=== PATIENT | female | born 1935 | race Hispanic/Latino ===

== ENCOUNTER 2017-12-10 23:35 | Inpatient (IN) | payer OTHER, MEDICARE ==
[~2017-12-10] VITALS: Ht 154.9 cm; Wt 83.9 kg
[~2017-12-10 23:35] MED LIST: ALBU2.5V2 IH; ALBU8.5H8 IH; AMOX-429 PO; FLUT1DIS4 IH; INSU100V12 SQ; IPRA3AMP24 IH; LOSA100T2 PO; METF10004 PO; METO-408 PO; MONT10TA24 PO; OMEP40CA37 PO; RANO500T3 PO; SIMV40TA59 PO; TIOT18CA3 IH
[2017-12-10] MEDS ORDERED: SODIUM CHLORIDE 0.9% 1000ML 1,000 ML IV ONE (23:52)
[2017-12-10] MEDS ORDERED: FAMOTIDINE/PF 20 MG/2 ML VIAL IV ONE (23:52)
[2017-12-10] MEDS ORDERED: ONDANSETRON HCL MDV 20ML 2 MG/ML VIAL ONE (23:52)
[2017-12-11] VITALS (31 sets, daily range): BP systolic 121–219; BP diastolic 51–110
[2017-12-11 00:02] LABS: BASOPHILS % (AUTO) 0.9 % (0.0-5.0); EOSINOPHILS % (AUTO) 1.5 % (0.0-8.0); HEMATOCRIT 37.5 % (36-48); MEAN CORPUSCULAR HGB CONC 34.1 g/dL (32.0-36.0); MEAN CORPUSCULAR VOLUME 91.1 fL (79-99); MONOCYTES % (AUTO) 8.5 % (3.0-13.0); NEUTROPHILS % (AUTO) 67.1 % (40.0-77.0); PLATELET COUNT (AUTO) 210 K/uL (130-400); RED BLOOD CELL COUNT(AUTO) 4.11 MIL/uL (4.00-5.50); RED CELL DISTRIBUTION WIDTH 15.6 % (11.0-15.5); WHITE BLOOD COUNT (AUTO) 9.3 K/uL (4.8-10.8)
[2017-12-11 00:08] LABS: CREATININE 0.8 mg/dL (0.5-1.5); POTASSIUM 4.1 mmol/L (3.5-5.1)
[2017-12-11 00:13] LABS: ALBUMIN 3.8 g/dL (3.5-5.0); BILIRUBIN,TOTAL 0.4 mg/dL (0.2-1.0); TOTAL PROTEIN, SERUM 8.2 g/dL (6.0-8.3)
[2017-12-11] MEDS ORDERED: MORPHINE SULFATE 4 MG/1ML SYG ONE (00:22)
[2017-12-11 06:06] LABS: APPEARANCE,URINE Clear (CLEAR); BILIRUBIN,URINE Negative (NEGATIVE); COLOR,URINE Yellow (YELLOW); GLUCOSE, URINE (UA) Negative (NEGATIVE); KETONES,URINE Negative (NEGATIVE); LEUKOCYTE ESTERASE ,URINE Trace (NEGATIVE); NITRATE,URINE Negative (NEGATIVE); OCCULT BLOOD,URINE Negative (NEGATIVE); PROTEIN,URINE Negative (NEGATIVE)
[2017-12-11 06:18] LABS: BACTERIA,URINE None Seen /HPF (None Seen); MUCUS,URINE Rare LPF (None Seen); RBC,URINE None Seen /HPF (0-1); SQUAMOUS EPITHELIAL CELL,UR Rare /HPF (0-2); WBC,URINE None Seen /HPF (0-1)
[2017-12-11] MEDS: SODIUM CHLORIDE 0.9% 1000ML 1,000 ML IV SCH (06:50)
[2017-12-11] MEDS ORDERED: LIDOCAINE HCL-MPF 1% 2ML VIAL IVP PRN ×2 (07:00)
[2017-12-11] MEDS ORDERED: ONDANSETRON HCL MDV 20ML 2 MG/ML VIAL IVP PRN (07:00)
[2017-12-11] MEDS ORDERED: HYDRALAZINE HCL 20 MG/ML VIAL IV PRN (07:00)
[2017-12-11] MEDS ORDERED: POTASSIUM CHLORIDE 10% ELIXIR 20 MEQ/15 ML UDCUP PO PRN ×2 (07:00)
[2017-12-11] MEDS ORDERED: MORPHINE SULFATE 2 MG/ML 1ML SYG IV PRN (07:00)
[2017-12-11] MEDS ORDERED: POTASSIUM CHLORIDE 20 MEQ ERTAB PO PRN (07:00)
[2017-12-11] MEDS ORDERED: POTASSIUM CHLORIDE 20MEQ/100ML 100 ML IV PRN ×2 (07:00)
[2017-12-11] MEDS: FAMOTIDINE/PF 20 MG/2 ML VIAL IV SCH ×2 (09:00→21:00)
[2017-12-11] MEDS ORDERED: SODIUM CHLORIDE 0.9% 1000ML 1,000 ML IV ONE (09:40)
[2017-12-11] MEDS ORDERED: ENOXAPARIN SODIUM 40 MG/0.4 ML SYRINGE SQ ONE (15:50)
[2017-12-11] MEDS ORDERED: SIMV40TA59 PO (18:12)
[2017-12-11] MEDS ORDERED: MULT-1296 PO (18:12)
[2017-12-11] MEDS ORDERED: IBUP-2077 PO (18:12)
[2017-12-11] MEDS ORDERED: DULO30CA51 PO (18:12)
[2017-12-11] MEDS ORDERED: METF10004 PO (18:12)
[2017-12-11] MEDS ORDERED: METO1TAB41 PO (18:12)
[2017-12-11] MEDS ORDERED: PANT40TA25 PO (18:12)
[2017-12-11] MEDS ORDERED: RANO500T3 PO (18:12)
[2017-12-11] MEDS ORDERED: MONT10TA24 PO (18:12)
[2017-12-11] MEDS ORDERED: FURO20TA4 PO (18:12)
[2017-12-11] MEDS ORDERED: LOSA50TA37 PO (18:12)
[2017-12-11] MEDS ORDERED: DONE5TAB33 PO (18:13)
[2017-12-11] MEDS ORDERED: ADV250 IH (18:13)
[2017-12-11] MEDS ORDERED: ALBU8.5H8 IH (18:13)
[2017-12-11] MEDS ORDERED: SODIUM CHLORIDE 0.9% 10 ML VIAL ONE (18:14)
[2017-12-11] MEDS ORDERED: CEFOXITIN SODIUM 1 GM VIAL ONE (18:14)
[2017-12-11] MEDS ORDERED: FENTANYL CITRATE PF 50 MCG/1 ML 2ML VIAL ONE (18:25)
[2017-12-11] MEDS ORDERED: PROPOFOL 10 MG/ML 20ML VIAL IV ONE (18:25)
[2017-12-11] MEDS ORDERED: MIDAZOLAM HCL 1 MG/ML 2ML VIAL ONE (18:25)
[2017-12-11] MEDS ORDERED: ONDANSETRON HCL 4 MG/2 ML VIAL IVP PRN (20:15)
[2017-12-11] MEDS ORDERED: HYDRALAZINE HCL 20 MG/ML VIAL ONE (20:28)
[2017-12-11] MEDS ORDERED: MEPERIDINE-PF 50 MG/ML SYG ONE (20:39)
[2017-12-11] MEDS ORDERED: LABETALOL HCL 5 MG/ML 20ML VIAL IV ONE (20:49)
[2017-12-11] MEDS: ZOSYN 3.375GM+NS 50ML 50 ML IV SCH (21:13)
[2017-12-12] VITALS (10 sets, daily range): BP systolic 120–161; BP diastolic 53–97
[2017-12-12] MEDS: MORPHINE SULFATE 4 MG/1ML SYG IV PRN ×3 (01:23→17:19)
[2017-12-12] MEDS: LACTATED RINGERS 1000ML 1,000 ML IV SCH ×2 (01:24→14:33)
[2017-12-12] MEDS: SODIUM CHLORIDE 0.9% 1000ML 1,000 ML IV SCH ×2 (01:24→09:30)
[2017-12-12 04:24] LABS: BASOPHILS % (AUTO) 0.3 % (0.0-5.0); EOSINOPHILS % (AUTO) 0.1 % (0.0-8.0); HEMATOCRIT 34.3 % (36-48); LYMPHOCYTES % (AUTO) 7.8 % (21.0-51.0); MEAN CORPUSCULAR HEMOGLOBIN 33.1 pg (27.0-33.0); MEAN CORPUSCULAR HGB CONC 35.8 g/dL (32.0-36.0); MEAN CORPUSCULAR VOLUME 92.5 fL (79-99); MONOCYTES % (AUTO) 7.5 % (3.0-13.0); NEUTROPHILS % (AUTO) 84.3 % (40.0-77.0); PLATELET COUNT (AUTO) 188 K/uL (130-400); RED CELL DISTRIBUTION WIDTH 15.6 % (11.0-15.5); WHITE BLOOD COUNT (AUTO) 9.1 K/uL (4.8-10.8)
[2017-12-12 04:36] LABS: CREATININE 0.7 mg/dL (0.5-1.5); POTASSIUM 3.9 mmol/L (3.5-5.1)
[2017-12-12] MEDS: ZOSYN 3.375GM+NS 50ML 50 ML IV SCH ×3 (05:17→21:00)
[2017-12-12] MEDS ORDERED: SUB TO ALBUTEROL 2.5MG/3ML NEBULES PER P&T IH PRN (08:15)
[2017-12-12] MEDS: HCTZ PO SCH ×2 (09:00→21:00)
[2017-12-12] MEDS: METOPROLOL SUCCINATE PO SCH ×2 (09:00→21:00)
[2017-12-12] MEDS: MULTIVITAMINS/MINERALS/IRO TAB PO SCH (09:00)
[2017-12-12] MEDS: ALBUTEROL SULFATE 0.083% 2.5 MG/3 ML INH IH SCH ×2 (14:16→18:00)
[2017-12-12] MEDS: FUROSEMIDE 20 MG TABLET PO SCH (14:32)
[2017-12-12] MEDS: LOSARTAN 50 MG TABLET PO SCH (14:32)
[2017-12-12] MEDS: RANOLAZINE 500 MG TAB.SR.12H PO SCH ×2 (14:32→22:53)
[2017-12-12] MEDS: FAMOTIDINE/PF 20 MG/2 ML VIAL IV SCH (14:32)
[2017-12-12] MEDS: DULOXETINE HCL 30 MG CAP PO SCH (14:32)
[2017-12-12] MEDS: ENOXAPARIN SODIUM 40 MG/0.4 ML SYRINGE SQ SCH (17:23)
[2017-12-12] MEDS: BUDESONIDE 0.5 MG/2 ML INH IH SCH (18:10)
[2017-12-12] MEDS: IPRATROPIUM/ALBUTEROL SULFATE 3 ML SOLUTION IH PRN (18:10)
[2017-12-12] MEDS: INSULIN HUMULIN R 100 UNIT/ML 3ML SQ SCH (21:00)
[2017-12-12] MEDS: MONTELUKAST SODIUM 10 MG TAB PO SCH (22:53)
[2017-12-12] MEDS: ATORVASTATIN CALCIUM 20 MG TABLET PO SCH (22:53)
[2017-12-12] MEDS: DONEPEZIL HCL 5 MG TAB PO SCH (22:53)
[2017-12-13] MEDS: IPRATROPIUM/ALBUTEROL SULFATE 3 ML SOLUTION IH PRN ×4 (00:33→23:25)
[2017-12-13 03:00] VITALS: BP 133/66
[2017-12-13] MEDS ORDERED: MORPHINE SULFATE 2 MG/ML 1ML SYG IVP PRN (05:00)
[2017-12-13] MEDS: ALBUTEROL SULFATE 0.083% 2.5 MG/3 ML INH IH SCH ×3 (06:00→19:15)
[2017-12-13 06:14] LABS: BASOPHILS % (AUTO) 0.7 % (0.0-5.0); EOSINOPHILS % (AUTO) 1.5 % (0.0-8.0); LYMPHOCYTES % (AUTO) 13.7 % (21.0-51.0); MEAN CORPUSCULAR HEMOGLOBIN 31.8 pg (27.0-33.0); MEAN CORPUSCULAR HGB CONC 34.6 g/dL (32.0-36.0); MONOCYTES % (AUTO) 11.2 % (3.0-13.0); NEUTROPHILS % (AUTO) 72.9 % (40.0-77.0); PLATELET COUNT (AUTO) 168 K/uL (130-400); RED BLOOD CELL COUNT(AUTO) 3.37 MIL/uL (4.00-5.50); RED CELL DISTRIBUTION WIDTH 15.6 % (11.0-15.5); WHITE BLOOD COUNT (AUTO) 6.9 K/uL (4.8-10.8)
[2017-12-13] MEDS: ZOSYN 3.375GM+NS 50ML 50 ML IV SCH ×3 (06:19→23:10)
[2017-12-13 06:24] LABS: CREATININE 0.7 mg/dL (0.5-1.5); POTASSIUM 3.7 mmol/L (3.5-5.1)
[2017-12-13] MEDS: INSULIN HUMULIN R 100 UNIT/ML 3ML SQ SCH ×4 (06:32→21:00)
[2017-12-13] MEDS: MORPHINE SULFATE 4 MG/1ML SYG IV PRN (06:35)
[2017-12-13] MEDS: BUDESONIDE 0.5 MG/2 ML INH IH SCH ×2 (06:38→19:15)
[2017-12-13 08:00] VITALS: BP 142/59
[2017-12-13] MEDS ORDERED: ACETAMINOPHEN-CODEINE 300/30MG TAB PO PRN (08:30)
[2017-12-13] MEDS: HCTZ PO SCH ×2 (09:00→21:00)
[2017-12-13] MEDS: MULTIVITAMINS/MINERALS/IRO TAB PO SCH (09:00)
[2017-12-13] MEDS: METOPROLOL SUCCINATE PO SCH ×2 (09:00→21:00)
[2017-12-13] MEDS: RANOLAZINE 500 MG TAB.SR.12H PO SCH ×2 (09:56→23:11)
[2017-12-13] MEDS: ENOXAPARIN SODIUM 40 MG/0.4 ML SYRINGE SQ SCH (09:57)
[2017-12-13] MEDS: LOSARTAN 50 MG TABLET PO SCH (09:57)
[2017-12-13] MEDS: DULOXETINE HCL 30 MG CAP PO SCH (09:57)
[2017-12-13] MEDS: FUROSEMIDE 20 MG TABLET PO SCH (09:57)
[2017-12-13 11:00] VITALS: BP 141/74
[2017-12-13] MEDS: LACTATED RINGERS 1000ML 1,000 ML IV SCH (12:53)
[2017-12-13 16:00] VITALS: BP 146/68
[2017-12-13] MEDS: ACETAMINOPHEN-CODEINE 300/30MG TAB PO PRN (18:15)
[2017-12-13 20:00] VITALS: BP 182/79
[2017-12-13] MEDS: ATORVASTATIN CALCIUM 20 MG TABLET PO SCH (23:10)
[2017-12-13] MEDS: DONEPEZIL HCL 5 MG TAB PO SCH (23:11)
[2017-12-13] MEDS: DOCUSATE SODIUM 100 MG CAP PO SCH (23:11)
[2017-12-13] MEDS: MONTELUKAST SODIUM 10 MG TAB PO SCH (23:11)
[2017-12-13 23:18] VITALS: BP 160/73
[2017-12-14] MEDS: LACTATED RINGERS 1000ML 1,000 ML IV SCH ×2 (01:27→15:59)
[2017-12-14 03:14] VITALS: BP 131/65
[2017-12-14] MEDS: ZOSYN 3.375GM+NS 50ML 50 ML IV SCH ×3 (05:58→23:44)
[2017-12-14 06:16] LABS: BASOPHILS % (AUTO) 0.4 % (0.0-5.0); EOSINOPHILS % (AUTO) 2.6 % (0.0-8.0); HEMATOCRIT 30.6 % (36-48); LYMPHOCYTES % (AUTO) 19.3 % (21.0-51.0); MEAN CORPUSCULAR HEMOGLOBIN 31.9 pg (27.0-33.0); MEAN CORPUSCULAR HGB CONC 34.9 g/dL (32.0-36.0); MEAN CORPUSCULAR VOLUME 91.6 fL (79-99); MONOCYTES % (AUTO) 8.8 % (3.0-13.0); NEUTROPHILS % (AUTO) 68.9 % (40.0-77.0); PLATELET COUNT (AUTO) 175 K/uL (130-400); RED BLOOD CELL COUNT(AUTO) 3.34 MIL/uL (4.00-5.50); RED CELL DISTRIBUTION WIDTH 14.8 % (11.0-15.5); WHITE BLOOD COUNT (AUTO) 5.5 K/uL (4.8-10.8)
[2017-12-14 06:22] LABS: CREATININE 0.6 mg/dL (0.5-1.5); POTASSIUM 3.4 mmol/L (3.5-5.1)
[2017-12-14] MEDS: BUDESONIDE 0.5 MG/2 ML INH IH SCH ×2 (06:26→19:05)
[2017-12-14] MEDS: ALBUTEROL SULFATE 0.083% 2.5 MG/3 ML INH IH SCH ×4 (06:26→19:05)
[2017-12-14] MEDS: INSULIN HUMULIN R 100 UNIT/ML 3ML SQ SCH ×4 (07:23→21:00)
[2017-12-14 08:00] VITALS: BP 146/54
[2017-12-14] MEDS ORDERED: ACET1TAB12 PO (08:03)
[2017-12-14] MEDS: METOPROLOL SUCCINATE PO SCH ×2 (09:00→21:00)
[2017-12-14] MEDS: HCTZ PO SCH ×2 (09:00→21:00)
[2017-12-14] MEDS: LOSARTAN 50 MG TABLET PO SCH (12:02)
[2017-12-14] MEDS: DULOXETINE HCL 30 MG CAP PO SCH (12:03)
[2017-12-14] MEDS: RANOLAZINE 500 MG TAB.SR.12H PO SCH ×2 (12:03→23:43)
[2017-12-14] MEDS: DOCUSATE SODIUM 100 MG CAP PO SCH ×2 (12:03→23:43)
[2017-12-14] MEDS: FUROSEMIDE 20 MG TABLET PO SCH (12:03)
[2017-12-14] MEDS: ENOXAPARIN SODIUM 40 MG/0.4 ML SYRINGE SQ SCH (12:04)
[2017-12-14] MEDS: MULTIVITAMINS/MINERALS/IRO TAB PO SCH (12:05)
[2017-12-14 16:00] VITALS: BP 154/64
[2017-12-14 19:00] VITALS: BP 165/77
[2017-12-14] MEDS: POTASSIUM CHLORIDE 20 MEQ ERTAB PO PRN ×2 (19:20→23:43)
[2017-12-14 23:00] VITALS: BP 142/84
[2017-12-14] MEDS: ATORVASTATIN CALCIUM 20 MG TABLET PO SCH (23:43)
[2017-12-14] MEDS: DONEPEZIL HCL 5 MG TAB PO SCH (23:43)
[2017-12-14] MEDS: MONTELUKAST SODIUM 10 MG TAB PO SCH (23:44)
[2017-12-15] MEDS: ALBUTEROL SULFATE 0.083% 2.5 MG/3 ML INH IH SCH ×3 (00:35→11:31)
[2017-12-15 03:00] VITALS: BP 167/74
[2017-12-15] MEDS: BUDESONIDE 0.5 MG/2 ML INH IH SCH (05:59)
[2017-12-15] MEDS: ZOSYN 3.375GM+NS 50ML 50 ML IV SCH (06:00)
[2017-12-15] MEDS: INSULIN HUMULIN R 100 UNIT/ML 3ML SQ SCH ×2 (06:16→11:30)
[2017-12-15] MEDS: ACETAMINOPHEN-CODEINE 300/30MG TAB PO PRN (06:45)
[2017-12-15 08:00] VITALS: BP 130/84
[2017-12-15] MEDS: METOPROLOL SUCCINATE PO SCH (09:00)
[2017-12-15] MEDS: MULTIVITAMINS/MINERALS/IRO TAB PO SCH (09:00)
[2017-12-15] MEDS: HCTZ PO SCH (09:00)
[2017-12-15] MEDS: DOCUSATE SODIUM 100 MG CAP PO SCH (11:58)
[2017-12-15] MEDS: DULOXETINE HCL 30 MG CAP PO SCH (11:58)
[2017-12-15] MEDS: RANOLAZINE 500 MG TAB.SR.12H PO SCH (11:58)
[2017-12-15] MEDS: LOSARTAN 50 MG TABLET PO SCH (11:59)
[2017-12-15] MEDS: FUROSEMIDE 20 MG TABLET PO SCH (11:59)
[2017-12-15 12:00] VITALS: BP 136/68
[2017-12-15] MEDS: ENOXAPARIN SODIUM 40 MG/0.4 ML SYRINGE SQ SCH (12:00)
== END 2017-12-15 18:14 | disposition home or self-care (01) | DRG 330 ==
LOC: EDH 23:35 → EDHIP 12-11 02:41 → OBSVTOIN 12-11 02:41 → 3BH 12-11 16:16
PROVIDERS: ADMIT Internal Medicine; ATTEND Internal Medicine
PROC: 0WQF0ZZ Repair Abdominal Wall, Open Approach (ICD-10-PCS; principal; 2017-12-12)
PROC: 0DQ80ZZ Repair Small Intestine, Open Approach (ICD-10-PCS; 2017-12-12)
DX: K43.9 Ventral hernia without obstruction or gangrene (principal); K56.609 Unspecified intestinal obstruction, unspecified as to partial versus complete obstruction; J96.10 Chronic respiratory failure, unspecified whether with hypoxia or hypercapnia; Z99.81 Dependence on supplemental oxygen; J44.9 Chronic obstructive pulmonary disease, unspecified; E78.5 Hyperlipidemia, unspecified; I10 Essential (primary) hypertension; F32.9 Major depressive disorder, single episode, unspecified; K66.0 Peritoneal adhesions (postprocedural) (postinfection); Z87.891 Personal history of nicotine dependence; Z90.710 Acquired absence of both cervix and uterus
CPT/HCPCS: 36415; 74018; 74176; 80048; 80053; 81001; 82948; 83690; 84132; 84484; 85025; 93005; 94640; 94664; 97039; A4344; A6453; A6454; J0360; J0694; J1650; J1815; J2175; J2250; J2270; J2405; J2543; J2704; J3010; J3490; J7030; J7120

== ENCOUNTER 2019-09-10 21:39 | Emergency (ER) | payer OTHER, MEDICARE ==
[~2019-09-10 21:39] MED LIST changes: +ACET1TAB12 PO; +ADV250 IH; -ALBU2.5V2 IH; -AMOX-429 PO; +DONE5TAB33 PO; +DULO30CA52 PO; -FLUT1DIS4 IH; +FURO20TA4 PO; +IBUP-2077 PO; -INSU100V12 SQ; -IPRA3AMP24 IH; -LOSA100T2 PO; +LOSA50TA64 PO; +METF-446 PO; -METF10004 PO; -METO-408 PO; +METO1TAB41 PO; -MONT10TA24 PO; +MONT10TA26 PO; +MULT-1296 PO; -OMEP40CA37 PO; +PANT40TA25 PO; -TIOT18CA3 IH
[2019-09-10 22:02] LABS: BASOPHILS % (AUTO) 0.8 % (0.0-5.0); EOSINOPHILS % (AUTO) 1.5 % (0.0-8.0); HEMATOCRIT 31.2 % (36-48); LYMPHOCYTES % (AUTO) 30.5 % (21.0-51.0); MEAN CORPUSCULAR HEMOGLOBIN 31.5 pg (27.0-33.0); MEAN CORPUSCULAR VOLUME 92.6 fL (79-99); MONOCYTES % (AUTO) 9.1 % (3.0-13.0); NEUTROPHILS % (AUTO) 57.9 % (40.0-77.0); PLATELET COUNT (AUTO) 207 K/uL (130-400); RED BLOOD CELL COUNT(AUTO) 3.37 MIL/uL (4.00-5.50); RED CELL DISTRIBUTION WIDTH 14.4 % (11.0-15.5); WHITE BLOOD COUNT (AUTO) 4.8 K/uL (4.8-10.8)
[2019-09-10 22:09] LABS: CREATININE 1.1 mg/dL (0.5-1.5); POTASSIUM 3.7 mmol/L (3.5-5.1)
[2019-09-10 22:11] LABS: INR 1.14 (0.85-1.15); PARTIAL THROMBOPLASTIN TIME 28.5 SEC (26.3-35.5); PROTHROMBIN TIME 11.9 SEC (9.6-11.6)
[2019-09-10 22:14] LABS: ALBUMIN 2.9 g/dL (3.5-5.0); BILIRUBIN,TOTAL 0.3 mg/dL (0.2-1.0); TOTAL PROTEIN, SERUM 6.8 g/dL (6.0-8.3)
[2019-09-11 00:39] LABS: APPEARANCE,URINE Cloudy (CLEAR); BILIRUBIN,URINE Small (NEGATIVE); COLOR,URINE Dark Yellow (YELLOW); GLUCOSE, URINE (UA) Negative (NEGATIVE); KETONES,URINE 15 mg/dL (NEGATIVE); LEUKOCYTE ESTERASE ,URINE Moderate (NEGATIVE); NITRATE,URINE Negative (NEGATIVE); OCCULT BLOOD,URINE Negative (NEGATIVE); PH,URINE 5.5 (5.0-8.0); PROTEIN,URINE POS 1+ mg/dL (NEGATIVE)
[2019-09-11 00:50] LABS: BACTERIA,URINE Moderate /HPF (None Seen); MUCUS,URINE Few LPF (None Seen); RBC,URINE None Seen /HPF (0-1); SQUAMOUS EPITHELIAL CELL,UR Rare /HPF (0-2)
== END 2019-09-11 05:32 | disposition home or self-care (01) ==
LOC: EDH 21:39
DX: E11.649 Type 2 diabetes mellitus with hypoglycemia without coma (principal); I10 Essential (primary) hypertension
CPT/HCPCS: 36415; 70450; 71045; 80053; 81001; 82550; 82948; 84484; 85025; 85610; 85730; 93005

== ENCOUNTER 2019-12-06 10:23 | Observation (INO) | payer OTHER, MEDICARE ==
[~2019-12-06] VITALS: Ht 157.5 cm; Wt 54.4 kg
[~2019-12-06 10:23] MED LIST changes: -PANT40TA25 PO; +PANT40TA54 PO
[2019-12-06 11:17] LABS: BASOPHILS % (AUTO) 0.8 % (0.0-5.0); EOSINOPHILS % (AUTO) 0.6 % (0.0-8.0); LYMPHOCYTES % (AUTO) 30.3 % (21.0-51.0); MEAN CORPUSCULAR HEMOGLOBIN 33.2 pg (27.0-33.0); MEAN CORPUSCULAR VOLUME 94.9 fL (79-99); MONOCYTES % (AUTO) 8.5 % (3.0-13.0); NEUTROPHILS % (AUTO) 59.5 % (40.0-77.0); PLATELET COUNT (AUTO) 224 K/uL (130-400); RED BLOOD CELL COUNT(AUTO) 3.16 MIL/uL (4.00-5.50); RED CELL DISTRIBUTION WIDTH 13.6 % (11.0-15.5); WHITE BLOOD COUNT (AUTO) 6.5 K/uL (4.8-10.8)
[2019-12-06] MEDS ORDERED: CEFTRIAXONE SODIUM 2 GM VIAL ONE (11:25)
[2019-12-06] MEDS ORDERED: SODIUM CHLORIDE 0.9% 1000ML 1,000 ML IV ONE (11:25)
[2019-12-06] MEDS ORDERED: SODIUM CHLORIDE 0.9% 100 ML IV ONE (11:26)
[2019-12-06 11:28] LABS: CARBON DIOXIDE 29 mmol/L (21-32); CHLORIDE 103 mmol/L (101-111); CREATININE 1.8 mg/dL (0.5-1.5); GLOMERULAR FILTR. RATE CALC 29 mL/min (>60); GLUCOSE,RANDOM 99 mg/dL (70-105); POTASSIUM 3.2 mmol/L (3.5-5.1); SODIUM SERUM 139 mmol/L (136-145); UREA NITROGEN, BLOOD 35 mg/dL (7-18)
[2019-12-06 11:36] LABS: INR 1.08 (0.85-1.15); PARTIAL THROMBOPLASTIN TIME 27.9 SEC (26.3-35.5); PROTHROMBIN TIME 11.6 SEC (9.6-11.6)
[2019-12-06 11:37] LABS: ALANINE AMINOTRANSFERASE 10 U/L (12-78); ALBUMIN 3.3 g/dL (3.5-5.0); ASPARTATE AMINOTRANSFERASE 17 U/L (10-37); BILIRUBIN,TOTAL 0.5 mg/dL (0.2-1.0); CREATINE KINASE, TOTAL 51 U/L (21-232); MYOGLOBIN 99 ng/mL (10-92); TROPONIN I < 0.04 ng/mL (0.00-0.06)
[2019-12-06 11:38] LABS: APPEARANCE,URINE Clear (CLEAR); BILIRUBIN,URINE Negative (NEGATIVE); COLOR,URINE Dark Yellow (YELLOW); GLUCOSE, URINE (UA) Negative (NEGATIVE); KETONES,URINE Trace mg/dL (NEGATIVE); LEUKOCYTE ESTERASE ,URINE Trace (NEGATIVE); NITRATE,URINE Negative (NEGATIVE); OCCULT BLOOD,URINE Negative (NEGATIVE); PROTEIN,URINE Trace mg/dL (NEGATIVE)
[2019-12-06 11:50] LABS: BACTERIA,URINE Few /HPF (None Seen); RBC,URINE 0-1 /HPF (0-1); SQUAMOUS EPITHELIAL CELL,UR 0-2 /HPF (0-2); WBC,URINE 0-1 /HPF (0-1)
--- NOTE | 2019-12-06 15:48 | NUR ---
[place] Plan Received call from patient's oldest daughter Chichi Justin. [facility] plan is for patient to go to [facility] in [place], [place] ph: [phone]. [facility] patient has nine children, but all are in agreement. Denies being MPOA and not aware that patient has a designated MPOA. Patient lives with son Jhonny Cesar ph: [phone]. States when patient is ready to discharge, herself and/or brother Jhonny will be providing transportation. Telephone consent completed. CM to follow-up. CD Addendum: 12/06/19 at 1556 by CARLOS EDUARDO OTT CM Amended: Links added.
[2019-12-06] MEDS ORDERED: ONDANSETRON HCL 4 MG/2 ML VIAL IVP PRN (16:45)
[2019-12-06] MEDS: SODIUM CHLORIDE 0.9% 1000ML 1,000 ML IV SCH ×2 (16:45→21:15)
[2019-12-06] MEDS ORDERED: ACETAMINOPHEN 325 MG TAB PO PRN (16:45)
[2019-12-06] MEDS ORDERED: LACTULOSE 20 GM/30 ML UDCUP PO PRN (16:45)
[2019-12-06 19:40] VITALS: BP 133/64
--- NOTE | 2019-12-06 20:00 | NUR ---
ADMIT PT ADMITTED TO ROOM 309, AWAKE ALERT BUT NON CONVERSANT. ADMISSION CARE DONE. PLACED IN BED COMFORTABLY. ORIENTED TO ROOM AND UNIT. PCP IN AND V/S MONITORED, STABLE. BED ALARM ACTIVATED. IN FOR MORE CARE AND MANAGEMENT. Addendum: 12/06/19 at 2210 by BETTY BHAKTA RN RN Amended: Links added.
--- NOTE | 2019-12-06 21:15 | NUR ---
MEDS ADMISSION ASSESSMENT DONE, PLEASE REFER TO CHART. ADMISSION DATA BASE COMPLETED. DUE IVF AND MEDS ADMINISTERED, TOLERATED WELL. KEPT COMFORTABLE IN BED. SIDE RAILS RAISED AND BED ALARM KEPT ON. PT'S DAUGHTER BECKY CALLED AND UPDATED AND UPDATED ON PT'S STATUS. Addendum: 12/06/19 at 2230 by BETTY BHAKTA RN RN Amended: Links added.
[2019-12-06] MEDS: HEPARIN SODIUM 5000UNIT/ML 1ML VIAL SQ SCH (21:17)
[2019-12-07 00:06] VITALS: BP 119/68
--- NOTE | 2019-12-07 02:00 | NUR ---
ROUNDS PT RESTING WELL, FAIRLY ASLEEP WITH RESPIRATIONS EVEN AND UNLABORED. KEPT UNDISTURBED FOR NOW. WILL MONITOR PT.
[2019-12-07 03:28] VITALS: BP 123/57
[2019-12-07 06:25] LABS: CREATININE 1.4 mg/dL (0.5-1.5); MAGNESIUM 0.5 mg/dL (1.80-2.40)
[2019-12-07 06:26] LABS: HEMATOCRIT 28.3 % (36-48); MEAN CORPUSCULAR HEMOGLOBIN 33.4 pg (27.0-33.0); MEAN CORPUSCULAR VOLUME 95.6 fL (79-99); RED BLOOD CELL COUNT(AUTO) 2.96 MIL/uL (4.00-5.50); WHITE BLOOD COUNT (AUTO) 4.9 K/uL (4.8-10.8)
--- NOTE | 2019-12-07 06:30 | NUR ---
CRITICAL LAB CALLED WITH CRITICAL RESULT OF KCL=3. PAGED LATASHA PEARCE, CUSTOMER CARE ASSISTANT BOTTOMER OPERATOR FOR [facility]IA ANSWERING SERVICE, AWAITING CALL BACK.
[2019-12-07] MEDS ORDERED: DEXTROSE 50%-WATER 50 ML DISP.SYRIN IV PRN (07:15)
[2019-12-07] MEDS ORDERED: POTASSIUM CHLORIDE 10% ELIXIR 20 MEQ/15 ML UDCUP PO PRN (07:15)
[2019-12-07] MEDS ORDERED: POTASSIUM CHLORIDE 20 MEQ ERTAB PO PRN (07:15)
[2019-12-07] MEDS ORDERED: GLUCAGON 1MG KIT 1 MG ML IM PRN (07:15)
[2019-12-07 07:26] VITALS: BP 171/63
[2019-12-07] MEDS: INSULIN HUMULIN R 100 UNIT/ML 3ML SQ SCH ×4 (07:30→19:43)
--- NOTE | 2019-12-07 07:30 | NUR ---
ORDERS AM CHARGE NURSE MARTHA INFORMS STOREKEEPER HELPER OF NEW ORDERS FOR KCL AND MG PROTOCOLS. AM NURSE PETTY MADE AWARE. ENDORSING PT FOR MORE CARE AND MANAGEMENT.
[2019-12-07] MEDS: HEPARIN SODIUM 5000UNIT/ML 1ML VIAL SQ SCH ×2 (10:08→19:42)
[2019-12-07 11:12] VITALS: BP 134/62
[2019-12-07] MEDS: LIDOCAINE HCL-MPF 1% 2ML VIAL IV PRN ×2 (12:05→19:45)
[2019-12-07] MEDS: POTASSIUM CHLORIDE 20MEQ/100ML 100 ML IV PRN ×2 (12:05→19:45)
[2019-12-07] MEDS: MAGNESIUM 2GM PREMIX 50ML 50 ML IV PRN (14:58)
--- NOTE | 2019-12-07 15:27 | NUR ---
Family in agreement NOAM attempted to reach Chichi, pt's oldest daughter, she is not at work today. Noam called Jhonny, son- and spoke to his Yvonne who answered the phone. Per Yvonne, pt was living with son and daughter in law prior to admission. Son was pt's provider. Yvonne states that daughter Chichi and Gavi were here from [place] but left today. Yvonne reports that there was a family meeting yesterday and dcp was discussed. It was agreed that pt as going to dc to [place] in [facility], that Chichi works at as a nurse. Yvonne states that Jhonny was only one that was not in agreement at first, but he has since changed his mind and feels that this best for pt. Plan is for Jhonny and Yvonne to transport pt by car to [place] once pt is discharged. Noam recd call from Chichi [phone]. She and gavi are in the car headed back to [place]. Chichi and Gavi verified the information Given by Yvonne. Per Chichi, pt has 7 living biological kids, 1 step son Farhat, and 1 daughter that passed November 13 of cancer. Of the 7, family has had no contact with Candelario for years. Chichi and Jhonny together with Gavi and Micah make majority. Daughters provided # for Micah [phone], Gavi [phone] who would make the 4 majority. Family feels that pt would be better in [place] closer to majority of the kids. Casimiro Huizar aware and will make referral
--- NOTE | 2019-12-07 15:30 | NUR ---
CM NOTE/SNF REFERRAL PER DAUGHTER, TONIA RASMUSSEN, REQUESTING TRUCKER HAND CARE AT [facility]. TRENT TELEPHONE CONSENT FOR [facility]. CLINICAL PACKET AND PAS[facility] FAXED AND CONFIRMED RECEIVED BY MICHAEL. COVID ASSESSMENT PENDING SIGNATURE, MICHAEL AT SNF AWARE. CM TO FOLLOW UP FOR APPROVAL
--- NOTE | 2019-12-07 15:48 | NUR ---
RD NOTIFICATION - POOR APPETITE Pt admitted with General body weakness. Hx of DM, HTN, Dementia. Pt with Heart Healthy, Mechanical-Soft diet order in place. Pt with low BMI for age. Recommend Glucerna QD RD to continue to monitor. Please notify as additional nutrition concerns arise. Thank you. Addendum: 12/07/19 at [address] Amended: Links added.
[2019-12-07 15:55] VITALS: BP 141/59
[2019-12-07] MEDS: SODIUM CHLORIDE 0.9% 1000ML 1,000 ML IV SCH (19:44)
[2019-12-07] MEDS ORDERED: ZINC OXIDE OINT 30GM TUBE TP SCH (19:45)
[2019-12-07 20:59] VITALS: BP 143/68
[2019-12-07] MEDS ORDERED: METO-408 PO (21:23)
[2019-12-08 00:37] VITALS: BP 157/62
[2019-12-08] MEDS: HYDRALAZINE HCL 20 MG/ML VIAL IV PRN (02:40)
[2019-12-08] MEDS: ZOLPIDEM TARTRATE 5 MG TAB PO PRN ×2 (02:47→20:40)
[2019-12-08] MEDS: LIDOCAINE HCL-MPF 1% 2ML VIAL IV PRN ×2 (02:51→04:58)
[2019-12-08 03:47] VITALS: BP 116/55
[2019-12-08 04:06] LABS: HEMATOCRIT 28.9 % (36-48); MEAN CORPUSCULAR HEMOGLOBIN 32.8 pg (27.0-33.0); MEAN CORPUSCULAR HGB CONC 34.9 g/dL (32.0-36.0); MEAN CORPUSCULAR VOLUME 93.8 fL (79-99); RED BLOOD CELL COUNT(AUTO) 3.08 MIL/uL (4.00-5.50); RED CELL DISTRIBUTION WIDTH 13.8 % (11.0-15.5); WHITE BLOOD COUNT (AUTO) 5.7 K/uL (4.8-10.8)
[2019-12-08 04:36] LABS: CREATININE 1.1 mg/dL (0.5-1.5); POTASSIUM 3.2 mmol/L (3.5-5.1)
[2019-12-08] MEDS: POTASSIUM CHLORIDE 20MEQ/100ML 100 ML IV PRN (05:00)
[2019-12-08] MEDS: INSULIN HUMULIN R 100 UNIT/ML 3ML SQ SCH ×4 (05:12→20:44)
[2019-12-08] MEDS: MAGNESIUM 2GM PREMIX 50ML 50 ML IV PRN (05:14)
[2019-12-08 08:00] VITALS: BP 108/55
[2019-12-08] MEDS: HEPARIN SODIUM 5000UNIT/ML 1ML VIAL SQ SCH ×2 (09:11→20:39)
[2019-12-08] MEDS: SODIUM CHLORIDE 0.9% 1000ML 1,000 ML IV SCH (09:27)
--- NOTE | 2019-12-08 11:19 | NUR ---
CM NOTE/F/U WITH SNF REFERRAL MICHAEL AT [facility] CALLED REGARDING AUTHORIZATION, MICHAEL NOT IN FACILITY. MESSAGE LEFT FOR MICHAEL TO CALL ME BACK.
[2019-12-08 11:59] VITALS: BP 117/61
--- NOTE | 2019-12-08 16:27 | NUR ---
CM NOTE/SNF APPROVED CALLED MICHAEL AT [facility] REGARDING SNF AUTHORIZATION. PER [place], AUTHORIZATION RECEIVED AND PATIENT APPROVED FOR LONG-TERM CARE. TONIA RASMUSSEN, DAUGHTER, MADE AWARE. PRIMARY NURSE, PETTY ABREU, MADE AWARE. PER NURSE, PATIENT HAS DISCHARGE ORDER. TONIA MADE AWARE OF DISCHARGE ORDER, STATES WILL CALL HER BROTHER TO ENVIRONMENTAL FIELD TEAM MEMBER PATIENT FROM HOSPITAL.
--- NOTE | 2019-12-08 17:02 | NUR ---
CM NOTE/DISCHARGE HELD CALL FROM PETTY ABREU STATING FAMILY CANNOT TRANSFORMER TESTER PATIENT AT TONIGHT. ADVISED TO CALL [facility] AND RELAY MESSAGE FROM FAMILY.
[2019-12-08 20:00] VITALS: BP 152/63
[2019-12-08 23:59] VITALS: BP 161/73
[2019-12-09 04:00] VITALS: BP 170/70
[2019-12-09] MEDS: HYDRALAZINE HCL 20 MG/ML VIAL IV PRN (04:10)
[2019-12-09] MEDS: SODIUM CHLORIDE 0.9% 1000ML 1,000 ML IV SCH (04:45)
[2019-12-09 05:00] VITALS: BP 117/58
[2019-12-09] MEDS: INSULIN HUMULIN R 100 UNIT/ML 3ML SQ SCH (07:30)
[2019-12-09 08:00] VITALS: BP 111/54
[2019-12-09] MEDS: HEPARIN SODIUM 5000UNIT/ML 1ML VIAL SQ SCH (09:00)
--- NOTE | 2019-12-09 09:44 | NUR ---
DISCHARGE INSTRUCTION REPORT GIVEN TO SNF, CHART COPIED AND BELONGING GATHERED, PATIENT UNABLE TO UNDERSTAND DISCHARGE INFORMATIONS OR SIGNS FORMS. IV REMOVED WITH CATHETER INTACT AND SITE DRESSED. PATIENT TAKING BY WHEELCHAIR TO ER AREA TO MEET FAMILY LOADED IN CAR AND DISCHARGE REVIEWED WITH SON AND FORMS GIVEN, NO QUESTIONS OR CONCERNS AT THIS TIME.
== END 2019-12-09 09:50 | disposition home or self-care (01) ==
LOC: EDH 10:23 → EDHIP 13:34 → 3BH 19:40
PROVIDERS: ADMIT Internal Medicine Critical Care Medicine; ATTEND Internal Medicine Critical Care Medicine
DX: R53.1 Weakness (principal); E11.9 Type 2 diabetes mellitus without complications; K29.70 Gastritis, unspecified, without bleeding; I10 Essential (primary) hypertension; F03.90 Unspecified dementia, unspecified severity, without behavioral disturbance, psychotic disturbance, mood disturbance, and anxiety; N17.9 Acute kidney failure, unspecified; R51 Headache
CPT/HCPCS: 36415 ×3; 71045 ×2; 80048 ×2; 80053; 81001; 82550; 82948 ×9; 83605; 83735 ×2; 83874; 84145; 84484; 85025; 85027 ×2; 85610; 85730; 87040 ×2; 87088; 93005; 96365; 96372 ×3; 96375 ×2; 96376 ×3; 97039 ×4; 97161; 99285; A6213; G0378 ×12; G8981; G8982; G8983; J0360 ×2; J0696; J1644 ×5; J3475 ×2; J3480 ×3; J3490 ×4; J7030 ×2